=== PATIENT | male | born 1995 | race American Indian/Alaskan Native ===

== ENCOUNTER 2018-11-25 22:46 | Emergency (ER) | payer OTHER ==
[2018-11-26] MEDS ORDERED: IBUPROFEN PO ONE (02:39)
[2018-11-26] MEDS ORDERED: TYLENOL PO ONE (02:39)
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
[2018-11-26 03:44] VITALS: BP 109/74
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
== END 2018-11-26 03:45 | disposition home or self-care (01) ==
LOC: ED 22:46
DX: S39.012A Strain of muscle, fascia and tendon of lower back, initial encounter (principal); V49.59XA Passenger injured in collision with other motor vehicles in traffic accident, initial encounter; X58.XXXA Exposure to other specified factors, initial encounter; Y93.89 Activity, other specified; Y92.89 Other specified places as the place of occurrence of the external cause; Y99.8 Other external cause status
CPT/HCPCS: 72100

== ENCOUNTER 2019-02-25 16:11 | Emergency (ER) | payer SELFPAY ==
[2019-02-25 16:19] VITALS: BP 103/61
--- NOTE | 2019-02-25 16:20 | Event Note ---
ED Screening Note Date of service: 02/25/19 Time: 16:17 ED Screening Note: This is a 24 y.o. M. that presents to the ER with swelling and pain around 3rd left nail bed x 4-5 days. This initial assessment/diagnostic orders/clinical plan/treatment(s) is/are subject to change based on patients health status, clinical progression and re- assessment by fellow clinical providers in the ED. Further treatment and workup at subsequent clinical providers discretion. Patient/guardian urged not to elope from the ED as their condition may be serious if not clinically assessed and managed. Initial orders include:
[2019-02-25] MEDS ORDERED: BOOSTRIX IM ONE (17:15)
--- NOTE | 2019-02-25 18:13 | Emergency Department Report ---
ED General Adult HPI - General Chief complaint: Extremity Injury, Upper Stated complaint: SIPDER BITE Time Seen by Provider: 02/25/19 16:17 Source: patient Mode of arrival: Ambulatory Limitations: No Limitations - History of Present Illness Initial comments: Patient is a 24-year-old male presents to emergency room with complaints of swelling around his left middle fingernail that began 4 days ago. He states he does bite his nails. Denies any drainage or fever. States he has never had this before. The patient is unsure of his last tetanus shot. He denies any past medical history allergies to medications. The patient states he has also noticed some bumps surrounding his penis that began a couple months ago. He denies any penile pain, penile discharge, pain of the bumps, testicular pain, testicular swelling. Severity scale (0 -10): 10 - Related Data Previous Rx's Medication Instructions Recorded Last Taken Type Cyclobenzaprine [Flexeril] 10 mg PO TID PRN #21 tablet 11/26/18 Unknown Rx Ibuprofen [Motrin] 600 mg PO Q8H PRN #20 tablet 11/26/18 Unknown Rx cephALEXin [Keflex] 500 mg PO QID 7 Days #28 cap 02/25/19 Unknown Rx Allergies Allergy/AdvReac Type Severity Reaction Status Date / Time No Known Allergies Allergy Verified 02/25/19 18:54 ED Review of Systems ROS: Stated complaint: SIPDER BITE Other details as noted in HPI Comment: All other systems reviewed and negative ED Past Medical Hx - Past Medical History Previous Medical History?: No - Surgical History Past Surgical History?: Yes Additional Surgical History: left knee - Social History Smoking Status: Never Smoker Substance Use Type: None - Medications Home Medications: Home Medications Medication Instructions Recorded Confirmed Last Taken Type Cyclobenzaprine [Flexeril] 10 mg PO TID PRN #21 tablet 11/26/18 Unknown Rx Ibuprofen [Motrin] 600 mg PO Q8H PRN #20 tablet 11/26/18 Unknown Rx cephALEXin [Keflex] 500 mg PO QID 7 Days #28 cap 02/25/19 Unknown Rx ED Physical Exam - General Limitations: No Limitations General appearance: alert, in no apparent distress - Head Head exam: Present: atraumatic, normocephalic - Eye Eye exam: Present: normal appearance - ENT ENT exam: Present: mucous membranes moist - Respiratory Respiratory exam: Present: normal lung sounds bilaterally. Absent: respiratory distress, wheezes, rales, rhonchi, stridor, accessory muscle use, decreased breath sounds, prolonged expiratory - Cardiovascular Cardiovascular Exam: Present: regular rate, normal rhythm, normal heart sounds. Absent: systolic murmur, diastolic murmur, rubs, gallop - exam: Present: other (small genital warts present on the mons pubis around the penis but not present on the penis, no discharge present, no testicular edema or pain with palpation, extractor tender raw stock: ANIRUDH Rivera) - Neurological Exam Neurological exam: Present: alert, oriented X3 - Psychiatric Psychiatric exam: Present: normal affect, normal mood - Skin Skin exam: Present: warm, dry, other (2 cm area of induration and fluctuance to the left middle finger nail bed, no damage to the nail bed, no surrounding cellulitis, pt has FROM of the left middle finger without difficulty, 2+ radial pulse, sensation intact ) ED Course Vital Signs 02/25/19 16:17 Temperature 97.6 F Pulse Rate 77 Respiratory 18 Rate Blood Pressure 103/61 [Right] O2 Sat by Pulse 99 Oximetry - I & D Left Finger Type of Procedure: Simple Site: left middle finger surrounding the nail bed Blade Size: 11 I & D Procedure: betadine prep, sterile drapes applied, sterile dressing applied Progress: area prepped with betadine and sterile drapes applied, digital block performed with 2 cc of 1% lidocaine without epinephrine for anesthetic, 0.5 cm incision made, small amount of purulent/bloody drainage expressed, irrigated with 20 cc of saline, pt tolerated well, no complications, bleeding well controlled, sterile dressing applied ED Medical Decision Making - Medical Decision Making Patient is a 24-year-old male presents to emergency room with complaints of swelling around his left middle fingernail that began 4 days ago. He states he does bite his nails. Denies any drainage or fever. States he has never had this before. The patient is unsure of his last tetanus shot. He denies any past medical history allergies to medications. The patient states he has also noticed some bumps surrounding his penis that began a couple months ago. He denies any penile pain, penile discharge, pain of the bumps, testicular pain, testicular swelling. on exam: 2 cm area of induration and fluctuance to the left middle finger nail bed, no damage to the nail bed, no surrounding cellulitis, pt has FROM of the left middle finger without difficulty, 2+ radial pulse, sensation intact, small genital warts present on the mons pubis around the penis but not present on the penis, no discharge present, no testicular edema or pain with palpation, extractor tender raw stock: ANIRUDH Rivera. examination consistent with paronychia and genital warts. I&D performed per procedure note. pt given tetanus immunization. pt given prescription for keflex. advised to take medication as prescribed. follow up with a primary care doctor in the next 2-3 days for reevaluation. keep area clean and dry. may wash with soap and water and immediately dry. keep area covered. no hot tub, pool, or soaking in water. follow up with the health department or slot floorperson regarding warts in the next 2-3 days. if concerned for other STDs please be seen by health department or primary care doctor. abstain from sexual intercourse. return to the emergency room for any new or worsening symptoms. - Differential Diagnosis paronychia, cellulitis, abscess, insect bite Critical care attestation.: If time is entered above; I have spent that time in minutes in the direct care of this critically ill patient, excluding procedure time. ED Disposition Clinical Impression: Paronychia, Genital warts Disposition: - TO HOME OR SELFCARE Is pt being admited?: No Does the pt Need Aspirin: No Condition: Stable Instructions: Genital Warts (ED), Paronychia (ED), Incision and Drainage (ED) Additional Instructions: take medication as prescribed. follow up with a primary care doctor in the next 2-3 days for reevaluation. keep area clean and dry. may wash with soap and water and immediately dry. keep area covered. no hot tub, pool, or soaking in water. follow up with the health department or slot floorperson regarding warts in the next 2-3 days. if concerned for other STDs please be seen by health department or primary care doctor. abstain from sexual intercourse. return to the emergency room for any new or worsening symptoms. Prescriptions: cephALEXin [Keflex] 500 mg PO QID 7 Days #28 cap Referrals: JARRET STEIN MD [Primary Care Provider] - 2-3 Days [facility][1] [Outside] - 2-3 Days [facility] [Outside] - 2-3 Days Time of Disposition: 18:13 Print Language: ARGENTINE
[2019-02-25] MEDS ORDERED: XYLOCAINE 1% MPF 5 mL INFILTRATI ONE (18:47)
== END 2019-02-25 18:41 | disposition home or self-care (01) ==
LOC: ED 16:11
DX: L03.012 Cellulitis of left finger (principal); A63.0 Anogenital (venereal) warts; Z98.890 Other specified postprocedural states; Z79.899 Other long term (current) drug therapy; W57.XXXA Bitten or stung by nonvenomous insect and other nonvenomous arthropods, initial encounter; Y93.89 Activity, other specified; Y92.89 Other specified places as the place of occurrence of the external cause; Y99.8 Other external cause status
CPT/HCPCS: 90471; 90715